=== PATIENT | female | born 1990 | race Caucasian/White ===

== ENCOUNTER 2019-05-16 05:30 | Inpatient (IN) | payer BC ==
--- NOTE | 2019-05-15 17:24 | P.HPOB ---
History of Present Illness H&P Date: 05/15/19 Chief Complaint: requested induction of labor This patient is a pleasant 29-year-old 1 para 0 female estimated date of confinement 05/18/2019 estimated gestational age 39-5/7 weeks who presents to labor and delivery for requested induction of labor. Patient's care has been complicated by an isolated EIF and she was sent to maternal- medicine and evaluation there was negative. Follow-up ultrasound at approximately 28 week showed resolution of the EIF and he did not recommend further testing other than a growth ultrasound at 35 weeks. Patient's otherwise has been uncomplicated. Review of Systems Genitourinary: Reports Menstruation: Reports amenorrhea Past Medical History Past Medical History: No Reported History History of Any Multi-Drug Resistant Organisms: None Reported Additional Past Surgical History / Comment(s): patient apparently had a removal of vaginal polyp in the past. Past Psychological History: No Psychological Hx Reported Smoking Status: Never smoker Past Alcohol Use History: None Reported Past Drug Use History: None Reported Medications and Allergies Home Medications Medication Instructions Recorded Confirmed Type Cephalexin [Keflex] 500 mg PO Q12HR 5 Days #10 cap 09/17/18 Rx Allergies Allergy/AdvReac Type Severity Reaction Status Date / Time No Known Allergies Allergy Verified 09/17/18 00:48 Exam - OBG Physical Exam Abdomen: bowel sounds normal, no diffuse tenderness, no bruit present, no guarding noted, no hepatomegaly, no splenomegaly, no mass Vulva: both: normal Vagina: normal moisture, no discharge Cervix: no lesion (cervix in the office was 2 cm dilated.), no discharge Uterus: enlarged (fundal height is 39 cm) Results blood work shows she is A positive, rubella immune, RPR nonreactive, hepatitis B negative, Glucola was normal, group B strep was negative, level III ultrasound initially showed an isolated EIF however this resolved on follow-up ultrasound. Maternit T 21 was 46 XY. Assessment and Plan Assessment: this is a pleasant 29-year-old 1 para 0 female 39-5/7 weeks gestation who presents to labor and delivery for requested induction of labor. Plan is induction of labor and anticipate vaginal delivery. (1) 39 weeks gestation of Status: Acute Code(s): Z3A.39 - 39 WEEKS GESTATION OF SNOMED Code(s): 67454811 (2) Elective induction of labor planned Status: Acute Code(s): TUM9547 - SNOMED Code(s): 760601842
[2019-05-16] MEDS ORDERED: METHYLERGONOVINE 0.2 MG/ML 1 ML AMP IM PRN (05:46)
[2019-05-16] MEDS ORDERED: OXYTOCIN 30 UNITS/500 ML NS 30 UNIT in SALINE 1 500ML.BAG IV SCH (05:46)
[2019-05-16] MEDS ORDERED: LIDOCAINE 0.5% (PF) 5 MG/ML (50 ML SDV) SQ PRN (05:46)
[2019-05-16] MEDS ORDERED: TERBUTALINE 1 MG/ML VIAL SQ PRN (05:46)
[2019-05-16] MEDS ORDERED: OXYTOCIN 10 UNIT/ML 1 ML VIAL IM PRN (05:46)
[2019-05-16] MEDS ORDERED: CARBOPROST TROMETHAMINE 250 MCG/ML 1 ML AMP IM PRN (05:46)
[2019-05-16 06:00] LABS: Basophils % (A) 0 %; Eosinophils # (A) 0.1 k/uL (0-0.7); Eosinophils % (A) 1 %; HCT 36.9 % (34.0-46.0); HGB 12.2 gm/dL (11.4-16.0); Lymphocytes # (A) 2.2 k/uL (1.0-4.8); Lymphocytes % (A) 22 %; MCH 30.3 pg (25.0-35.0); MCHC 33.2 g/dL (31.0-37.0); MCV 91.3 fL (80.0-100.0); Mean Platelet Volume 8.4; Monocytes # (A) 0.6 k/uL (0-1.0); Monocytes % (A) 6 %; Neutrophils # (A) 7.1 k/uL (1.3-7.7); Neutrophils % (A) 69 %; Platelet Count 273 k/uL (150-450); RBC 4.04 m/uL (3.80-5.40); RDW 13.6 % (11.5-15.5); WBC 10.3 k/uL (3.8-10.6)
[2019-05-16 06:23] VITALS: BMI 37.3
[2019-05-16] MEDS: LACTATED RINGERS 1,000 ML IV SCH ×4 (06:37→17:02)
[2019-05-16] MEDS ORDERED: fentaNYL (PF) 50 MCG/ML 5 ML AMP ONE (10:17)
[2019-05-16] MEDS ORDERED: ROPIVACAINE 5MG/ML 20ML VIAL ONE (10:17)
[2019-05-16] MEDS ORDERED: SODIUM CHLORIDE 0.9% 100 ML BAG ONE (10:17)
[2019-05-16] MEDS ORDERED: AMPICILLIN 2,000 MG in SODIUM CHLORIDE 0.9% 100 ML IVPB STA (18:09)
[2019-05-16] MEDS ORDERED: BISACODYL 10 MG SUPP RECTAL PRN (20:17)
[2019-05-16] MEDS ORDERED: diphenhydrAMINE 25 MG CAP PO PRN (20:17)
[2019-05-16] MEDS ORDERED: OXYTOCIN 20 UNITS/1000 ML NS 1,000 ML IV SCH (20:17)
[2019-05-16] MEDS ORDERED: BENZOCAINE/MENTHOL SPRAY 1 GM/SPRAY AEROSOL TOPICAL PRN (20:17)
[2019-05-16] MEDS ORDERED: WITCH HAZEL 1 EACH MED..PAD TOPICAL PRN (20:17)
[2019-05-16] MEDS ORDERED: diphenhydrAMINE 50 MG/ML 1 ML VIAL IVP PRN (20:17)
[2019-05-16] MEDS ORDERED: ZOLPIDEM 5 MG TAB PO PRN (20:17)
[2019-05-16] MEDS ORDERED: HYDROCORTISONE 2.5% RECTAL CREAM 30 GM TUBE RECTAL PRN (20:17)
[2019-05-16] MEDS ORDERED: SIMETHICONE 80 MG CHEWABLE PO PRN (20:17)
[2019-05-16] MEDS ORDERED: LANOLIN CREAM 5 GM TUBE TOPICAL PRN (20:17)
--- NOTE | 2019-05-16 20:49 | P.PROBDLV ---
Vaginal Delivery Note - . Vaginal Delivery Note: Normal vaginal delivery viable male infant Apgars 8 and 9 delivery time is 2006 hrs. Please see dictated H&P for intimate details of this patient's admission. Brief summary this is a pleasant 29-year-old 1 para 0 female 39-5/7 weeks' gestation who presents to labor and delivery for requested induction of labor. On admission patient is 2 cm dilated has artificial rupture membranes for clear fluid. Labor is augmented with Pitocin and she progresses normally. Patient gets an epidural for pain control. She gets to complete and does develop a low- grade temperature at this time. She's given 2 g of ampicillin. Patient pushes for approximately 40 minutes. She pushes the head to the perineum the posterior perineum was supported. We have controlled delivery of the infant's head over the intact perineum. Mouth and nares are bulb suctioned. There is a tight nuchal cord which is reduced. We then with gentle downward traction we deliver the anterior posterior shoulder and rest this 's body. Is a vigorous viable male Apgars are 8 and 9 delivery time is 2016 hrs. After delivery of the the baby is late on the mother's abdomen. Does have some mottling at that time and therefore's taken directly over the warmer after cord is cut and clamped. After delivery of the infant the placenta spontaneously delivered intact. Inspection of perineum shows second-degree laceration which repaired with 3-0 Vicryl usual fashion good reapproximation is noted. Estimated blood loss is 100 mL. There are no complications. Mother does develop a temp to 1018 after delivery and therefore she given Ancef at this time. All counts correct 3.
[2019-05-16] MEDS: IBUPROFEN 600 MG TAB PO PRN (21:11)
[2019-05-16] MEDS: SENNOSIDES-DOCUSATE SODIUM 1 EACH TAB PO SCH (21:27)
--- NOTE | 2019-05-17 05:48 | P.PNOBGVD ---
Subjective - Subjective Patient reports: Reports appetite normal, Reports voiding normally, Reports pain well controlled, Reports ambulating normally : doing well Objective - Latest Vital Signs Latest vital signs: Vital Signs Temp Pulse Resp BP Pulse Ox 05/17/19 05:00 97.6 F 78 16 91/50 05/17/19 00:51 98 F 78 16 116/54 05/16/19 22:17 100.7 F H 99 16 128/62 05/16/19 21:47 100 16 131/62 05/16/19 21:17 96 16 138/64 05/16/19 21:02 104 H 16 144/62 05/16/19 20:47 104 H 16 144/62 05/16/19 20:30 101.8 F H 102 H 18 123/58 05/16/19 06:11 98.0 F 100 16 122/59 97 Intake and Output 05/16/19 05/16/19 05/17/19 14:59 22:59 06:59 Output Total 100 Balance -100 Output: Estimated Blood Loss 100 Other: # Voids 1 - Exam Lungs: bilateral: normal Chest: Normal S1, Normal S2 Extremities: Present: normal Abdomen: Present: normal appearance, soft Uterus: Present: normal, firm Assessment and Plan Assessment: Post day #1. Patient had developed a fever immediately to 101.8 and therefore I did start her on some IV Ancef or 2 doses. She quickly defervesced an ongoing change her over to oral Augmentin. Patient's otherwise doing well without complaints. She is having normal lochia and her uterus is firm and nontender. Baby is in special care for IV antibiotics as well. Plan today is to continue routine care. We'll check a CBC and patient will most likely go home tomorrow. (1) 39 weeks gestation of Current Visit: No Status: Acute Code(s): Z3A.39 - 39 WEEKS GESTATION OF SNOMED Code(s): 76762928 (2) Elective induction of labor planned Current Visit: No Status: Acute Code(s): OLC9360 - SNOMED Code(s): 60930 3005
[2019-05-17 06:19] LABS: Basophils % (A) 0 %; Eosinophils % (A) 0 %; HCT 32.1 % (34.0-46.0); HGB 10.7 gm/dL (11.4-16.0); Lymphocytes # (A) 1.5 k/uL (1.0-4.8); Lymphocytes % (A) 8 %; MCHC 33.4 g/dL (31.0-37.0); MCV 92.7 fL (80.0-100.0); Monocytes # (A) 0.8 k/uL (0-1.0); Monocytes % (A) 5 %; Neutrophils # (A) 16.4 k/uL (1.3-7.7); Neutrophils % (A) 87 %; Platelet Count 241 k/uL (150-450); RBC 3.47 m/uL (3.80-5.40); RDW 13.7 % (11.5-15.5); WBC 18.9 k/uL (3.8-10.6)
[2019-05-17] MEDS: IBUPROFEN 600 MG TAB PO PRN ×3 (08:29→22:10)
[2019-05-17] MEDS: SENNOSIDES-DOCUSATE SODIUM 1 EACH TAB PO SCH ×2 (10:22→19:35)
[2019-05-17] MEDS: AMOXIC-POT CLAV 875-125MG 1 EACH TAB PO SCH ×2 (10:28→22:09)
[2019-05-17] MEDS: ACETAMINOPHEN TAB 325 MG TAB PO PRN (19:36)
[2019-05-18] MEDS: AMOXIC-POT CLAV 875-125MG 1 EACH TAB PO SCH ×2 (07:46→16:18)
[2019-05-18] MEDS: SENNOSIDES-DOCUSATE SODIUM 1 EACH TAB PO SCH (07:46)
[2019-05-18] MEDS: IBUPROFEN 600 MG TAB PO PRN ×2 (07:47→14:24)
[2019-05-18 08:04] VITALS: PULSE 73; RESP 18
--- NOTE | 2019-05-18 11:20 | P.DS ---
Providers Date of admission: 05/16/19 05:30 Expected date of discharge: 05/18/19 Attending physician: Romulo Pitt Primary care physician: Stated None Hospital Course: Patient is doing very well day 2. She is involuting, voiding and tolerating her diet. She voices no complaints. Vital signs are stable and afebrile. She did have a temperature latent labor of 102 and there been watching her very closely ever since. She is on antibiotics. Her white blood cell count difficult to 18 but she is been afebrile now for greater than 24 hours has no signs or symptoms of of infection and feels well. We'll plan to discharge her to home today. On physical exam heart regular, lungs clear, extremities without pain. Abdomen is soft uterus is firm and lochia is reported be light. Baby is still in special care nursery under observational care and will likely not be discharged until potentially Monday or Monday. All the questions were answered for her prescriptions were sent to the pharmacy. She is stable for discharge at this time and discharge instruction skin were thoroughly reviewed. Patient Condition at Discharge: Good Plan - Discharge Summary New Discharge Prescriptions: New Amoxic-Pot Clav 875-125Mg [Augmentin 875-125] 1 each PO Q12HR #14 tab Ibuprofen [Motrin] 600 mg PO Q6HR PRN #40 tab PRN Reason: Mild Pain Or Fever >= 100.5 No Action Pnv,Calcium 72/Iron/Folic Acid [ Plus Tablet] 1 each PO DAILY Discharge Medication List Pnv,Calcium 72/Iron/Folic Acid [ Plus Tablet] 1 each PO DAILY 05/16/19 [History] Amoxic-Pot Clav 875-125Mg [Augmentin 875-125] 1 each PO Q12HR #14 tab 05/17/19 [Rx] Ibuprofen [Motrin] 600 mg PO Q6HR PRN #40 tab 05/17/19 [Rx] Follow up Appointment(s)/Referral(s): Romulo Pitt MD [STAFF PHYSICIAN] - 06/27/19 10:15 am Patient Instructions/Handouts: Vaginal Delivery (DC) Activity/Diet/Wound Care/Special Instructions: No intercourse or anything per vagina for 6 weeks. Please call if any fever, chills, excessive vaginal bleeding, and/or abdominal pain. Discharge Disposition: HOME SELF-CARE
[2019-05-18] MEDS: ACETAMINOPHEN TAB 325 MG TAB PO PRN (16:18)
[2019-05-18 16:45] VITALS: BP 124/73; TEMP 97.6
== END 2019-05-18 16:51 | disposition home or self-care (01) | DRG 806 ==
LOC: MERGE 05:30 → 4FBP 05:30
PROVIDERS: ADMIT Obstetrics & Gynecology; ATTEND Obstetrics & Gynecology
PROC: 10E0XZZ Delivery of Products of Conception, External Approach (ICD-10-PCS; principal; 2019-05-16)
PROC: 0KQM0ZZ Repair Perineum Muscle, Open Approach (ICD-10-PCS; 2019-05-16)
PROC: 00HU33Z Insertion of Infusion Device into Spinal Canal, Percutaneous Approach (ICD-10-PCS; 2019-05-16)
PROC: 3E0R3BZ Introduction of Anesthetic Agent into Spinal Canal, Percutaneous Approach (ICD-10-PCS; 2019-05-16)
PROC: 10907ZC Drainage of Amniotic Fluid, Therapeutic from Products of Conception, Via Natural or Artificial Opening (ICD-10-PCS; 2019-05-16)
DX: O69.1XX0 Labor and delivery complicated by cord around neck, with compression, not applicable or unspecified (principal); O86.4 Pyrexia of unknown origin following delivery; Z37.0 Single live birth; O70.1 Second degree perineal laceration during delivery; Z3A.39 39 weeks gestation of pregnancy
CPT/HCPCS: 85025; 86850; 86900; 86901; 88307

== ENCOUNTER → 2020-07-20 | Outpatient (CLI) | payer BC ==
[2020-07-20 09:04] LABS: Basophils # (A) 0.1 k/uL (0-0.2); Basophils % (A) 1 %; Eosinophils # (A) 0.1 k/uL (0-0.7); Eosinophils % (A) 2 %; HCT 37.1 % (34.0-46.0); Hypochromasia Slight; Lymphocytes # (A) 1.6 k/uL (1.0-4.8); Lymphocytes % (A) 39 %; MCH 29.2 pg (25.0-35.0); MCHC 32.4 g/dL (31.0-37.0); MCV 90.1 fL (80.0-100.0); Mean Platelet Volume 8.1; Monocytes # (A) 0.3 k/uL (0-1.0); Monocytes % (A) 7 %; Neutrophils % (A) 48 %; Platelet Count 286 k/uL (150-450); RBC 4.12 m/uL (3.80-5.40); RDW 12.8 % (11.5-15.5); WBC 4.2 k/uL (3.8-10.6)
[2020-07-20 15:28] LABS: % Iron Saturation 5.91 (12.00-45.00); African American GFR (CKD) 98.7 (60.0-200.0); Albumin 4.6 g/dL (3.80-4.90); Albumin/Globulin Ratio 1.64 (1.60-3.17); Anion Gap 7.1 mmol/L (4.00-12.00); BUN/Creat Ratio 16.67 Ratio (12.00-20.00); Calcium 9.2 mg/dL (8.7-10.3); Carbon Dioxide 25.9 mmol/L (21.6-31.8); Chol/HDL Ratio 3.43; Globulin 2.8 g/dL (1.6-3.3); LDL Cholesterol,Calculated 104.6 mg/dL (0.0-131.0); Non-African American GFR(CKD) 85.2 (60.0-200.0); Potassium 4.3 mmol/L (3.5-5.5); Total Bilirubin 0.3 mg/dL (0.2-1.2); Total Protein 7.4 g/dL (6.2-8.2); VLDL Calculation 14.4 mg/dL (5.00-40.00)
== END | disposition home or self-care (01) ==
LOC: LABWHC1 07:40
PROVIDERS: ATTEND Nurse Practitioner Adult Health
DX: Z00.00 Encounter for general adult medical examination without abnormal findings (principal); E66.9 Obesity, unspecified; E28.2 Polycystic ovarian syndrome
CPT/HCPCS: 36415; 80053; 80061; 82306; 83540; 83550; 84443; 85025

== ENCOUNTER → 2023-04-10 | Outpatient (CLI) | payer BC ==
[2023-04-10 18:22] LABS: Basophils # (A) 0.05 X 10*3/uL (0.00-0.10); Eosinophils # (A) 0.06 X 10*3/uL (0.04-0.35); Eosinophils % (A) 1.2 %; HCT 39.9 % (37.2-46.3); HGB 13.2 d/dL (12.0-15.0); Lymphocytes % (A) 33.1 %; MCH 30.6 pg (27.0-32.0); MCHC 33.1 d/dL (32.0-37.0); MCV 92.4 FL (80.0-97.0); Monocytes # (A) 0.42 X 10*3/uL (0.20-1.00); Monocytes % (A) 8.7 %; NRBC Per 100 WBC 0 X 10*3/uL (0.00-0.01); Neutrophils % (A) 55.8 %; Platelet Count 255 X 10*3/uL (140-440); RBC 4.32 X 10*6/uL (4.10-5.20); RDW 13.1 % (11.5-14.5); WBC 4.84 X 10*3/uL (4.50-10.00)
== END | disposition home or self-care (01) ==
LOC: LABPAT 10:28
PROVIDERS: ATTEND Obstetrics & Gynecology
DX: Z01.818 Encounter for other preprocedural examination (principal)
CPT/HCPCS: 85025

== ENCOUNTER 2023-04-13 05:45 | Day surgery (SDC) | payer BC ==
[2023-04-07 09:24] VITALS: BMI 32.8
--- NOTE | 2023-04-12 07:46 | P.HPOB ---
History of Present Illness H&P Date: 04/12/23 Chief Complaint: Menorrhagia This patient is a pleasant 33-year-old 1 para 1 female who presented to me earlier this year with complaints of heavy long painful periods. Patient has tried oral contraceptives without relief. Evaluation has included laboratory testing and a normal pelvic ultrasound. Patient now is presenting for hysteroscopy and D&C for further evaluation. Review of Systems Constitutional: Reports as per HPI Genitourinary: Reports as per HPI, Reports menorrhagia Past Medical History Past Medical History: No Reported History Additional Past Medical History / Comment(s): irreg. heavy menses History of Any Multi-Drug Resistant Organisms: None Reported Additional Past Surgical History / Comment(s): removal of vaginal polyp in the past. Past Anesthesia/Blood Transfusion Reactions: No Reported Reaction Past Psychological History: No Psychological Hx Reported Smoking Status: Never smoker Past Alcohol Use History: None Reported Past Drug Use History: None Reported - Past Family History Father Family Medical History: Diabetes Mellitus Medications and Allergies Home Medications Medication Instructions Recorded Confirmed Type Kemi Fe 1 tab PO DAILY 04/07/23 History Phentermine HCl 37.5 mg PO AC-BRKFST 04/07/23 04/07/23 History Allergies Allergy/AdvReac Type Severity Reaction Status Date / Time No Known Allergies Allergy Verified 04/07/23 09:10 Exam - OBG Physical Exam Abdomen: bowel sounds normal, no diffuse tenderness, no bruit present, no guarding noted, no hepatomegaly, no splenomegaly, no mass Vulva: both: normal Vagina: normal moisture, no discharge Cervix: no lesion, no discharge Uterus: normal size, normal contour Adnexa: both: normal Results Transvaginal ultrasound was normal. Assessment and Plan Assessment: This is a pleasant 33-year-old 1 para 1 female with refractory menorrhagia and negative evaluation who presents for hysteroscopy and D&C for further evaluation. I discussed the surgery and risks with the patient including risks of infection, bleeding, possible uterine perforation. All the patient's questions are answered and a written consent is obtained. (1) Menorrhagia Status: Acute Code(s): N92.0 - EXCESSIVE AND FREQUENT MENSTRUATION WITH REGULAR CYCLE SNOMED Code(s): 558148797
[~2023-04-13 05:45] MED LIST: DEXAMETHASONE SOD PHOSPHATE 4 MG/ML 1 ML VIAL IV ONE; LIDOCAINE 1% (10MG/ML) FOR IV START INTRADERMA PRN; Pre Op ABX Message 1 EACH MISC MISCELLANE ONE; SCOPOLAMINE 1 MG/72 HR PATCH TRANSDERM ONE; droPERidol 5 MG/2 ML VIAL IVP ONE
[2023-04-13] MEDS ORDERED: LACTATED RINGERS 1,000 ML IV ONE (06:15)
[2023-04-13] MEDS: ONDANSETRON 4 MG/2 ML VIAL IVP ONE ×2 (06:42→08:10)
[2023-04-13] MEDS ORDERED: KETOROLAC 15 MG/ML 1 ML VIAL ONE (06:43)
[2023-04-13] MEDS ORDERED: PROPOFOL 10 MG/ML 20 ML VIAL IV ONE (06:43)
[2023-04-13] MEDS ORDERED: MIDAZOLAM 2 MG/2 ML VIAL ONE (06:43)
[2023-04-13] MEDS ORDERED: fentaNYL (PF) 50 MCG/ML 2 ML AMP ONE (06:43)
[2023-04-13] MEDS ORDERED: LIDOCAINE 2% INJ 20 MG/ML (2 ML VIAL) ONE (06:43)
--- NOTE | 2023-04-13 07:22 | P.OP ---
Date of Procedure: 04/13/23 Preoperative Diagnosis: Menorrhagia Postoperative Diagnosis: Same Procedure(s) Performed: #1: Hysteroscopy. #2: Dilation and curettage Anesthesia: FAYN Surgeon: Romulo Pitt Estimated Blood Loss (ml): 10 Urine output (ml): 10 Pathology: other (Uterine curettings) Condition: stable Disposition: PACU Indications for Procedure: Please see dictated H&P for intimate details patient's admission. Brief summary is a pleasant 33-year-old with long-standing menorrhagia refractory to oral contraceptives and negative evaluation. Patient now presents for hysteroscopy D&C for further evaluation. Patient understands this procedure and risks and risks of infection, bleeding, possible uterine perforation. All the patient's questions are answered and a written consent is obtained. Operative Findings: This patient had a normal-appearing endometrial cavity Description of Procedure: This patient is taken to the operating room where she is laid in the supine position. She subsequently undergoes general endotracheal anesthesia without incident. With an adequate level of anesthesia she's placed in dorsal lithotomy position. She has a vaginal perineal prep and drape. Examination under anesthesia shows a mid position uterus of normal size. Bladder is drained at this time for 10 mL of clear urine. Weighted speculum was placed in the posterior vagina. Using an Allis clamp and grasped the anterior lip of the cervix. Uterus is then gently sounded to 9-1/2 cm. Serial dilation of the cervix is then done to allow the hysteroscope easily uterine cavity. Using saline solution hysteroscopy is performed and the uterine cavity is visualized. There is no evidence of any polyps or fibroids. Uterine cavity appears smooth. With this done the hysteroscope was removed. Cervix is dilated more to allow a large curette easily uterine cavity. A gentle but thorough 4 quadrant curettage is done at this time. This done the procedure is ended. The Allis clamp and weighted speculum were removed. All counts are correct 3. No complications. Patient is awakened from anesthesia and taken recovery room in satisfactory condition
[2023-04-13 07:30] VITALS: TEMP 97.4
[2023-04-13] MEDS: HYDROmorphone 0.5 MG/0.5 ML SYRINGE IVP PRN ×3 (07:35→07:50)
[2023-04-13 07:37] VITALS: RESP 16
[2023-04-13] MEDS: LACTATED RINGERS 1,000 ML IV SCH ×2 (07:53→08:18)
[2023-04-13 08:44] VITALS: BP 106/56; PULSE 81
== END 2023-04-13 09:50 | disposition home or self-care (01) ==
LOC: OR 05:45
PROVIDERS: ATTEND Obstetrics & Gynecology
DX: N92.0 Excessive and frequent menstruation with regular cycle (principal); Z98.890 Other specified postprocedural states; Z83.3 Family history of diabetes mellitus; Z79.899 Other long term (current) drug therapy
CPT/HCPCS: 81025; 88305; 58558; J2250; J1100; J2405; J3010; J1885; J2704; J1170; J1790; J2001